=== PATIENT | female | born 1975 | race Caucasian/White ===

== ENCOUNTER 2023-11-23 18:41 | Emergency (ER) | payer OTHER, SELFPAY ==
[2023-11-23 18:45] VITALS: BP 120/79
[2023-11-23 19:06] LABS: % Basophils 0.5 % (0-2); % Eosinophils 2.1 % (0-6); % Immature Granulocytes 2.3 % (0-0.5); % Lymphocytes 23.7 % (20.5-51.1); % Monocytes 8.8 % (1.7-9.3); % Neutrophils 62.6 % (42.2-75.2); Absolute Basophils 0.1 10^3/uL (0-0.2); Absolute Eosinophils 0.2 10^3/uL (0-0.7); Absolute Immature Granulocytes 0.2 10^3/uL (0-0.05); Absolute Lymphocytes 2.5 10^3/uL (1.2-3.4); Absolute Monocytes 0.9 10^3/uL (0.1-0.6); Absolute Neutrophils 6.6 10^3/uL (1.4-6.5); Hematocrit 32.6 % (37.0-47.0); Hemoglobin 11.6 g/dL (12.0-16.0); Mean Corp Hgb Conc. 35.6 g/dL (33.0-37.0); Mean Corpuscular Hgb 33.6 pg (27.0-31.0); Mean Corpuscular Volume 94.5 fL (81.0-99.0); Mean Platelet Volume 11.8 fL (7.4-10.4); Nucleated Red Blood Cells % 0 %; Platelet Count 208 10^3/uL (130-400); Red Blood Cell Count 3.45 10^6/uL (4.20-5.40); Red Cell Dist. Width 13.8 % (11.5-14.5); White Blood Cell Count 10.6 10^3/uL (4.8-10.8)
[2023-11-23 19:13] LABS: Urine Albumin Negative (Neg - Trace); Urine Bilirubin 1+ (Negative); Urine Character Clear (Clear); Urine Color Yellow; Urine Glucose Negative (Negative); Urine Ketone Negative (Negative); Urine Leukocyte Trace (Negative); Urine Nitrite Negative (Negative); Urine Occult Blood Negative (Negative); Urine Urobilinogen 2+ (Neg - 1+)
[2023-11-23 19:22] LABS: COVID-19 Antigen Negative (Negative); Urine Squamous Cell 26-30 /LPF (Few)
[2023-11-23 19:23] LABS: Urine Bacteria Few (Negative); Urine Red Blood Cell 0-2 /HPF (0-2); Urine White Cell 0-2 /HPF (0-5)
[2023-11-23 19:38] LABS: HCG, Serum Qualitative Screen Negative
[2023-11-23 19:56] LABS: Amphetamines Negative (Negative); Barbiturates Negative (Negative); Benzodiazepines Negative (Negative); Buprenorphine Negative (Negative); Cocaine Negative (Negative); Methadone Negative (Negative); Methamphetamines Negative (Negative)
[2023-11-23 19:57] LABS: Marijuana Negative (Negative); Opiates Negative (Negative); Phencyclidine Negative (Negative); Tricyclic Antidepressants Positive (Negative)
--- NOTE | 2023-11-23 22:23 | ED.GENMED ---
History of Present Illness
General
Chief Complaint: Psychiatric Problem
Source: patient and family
Time Seen by Provider: 11/23/23 19:51
Travel History
Have you had any contact with someone who has COVID-19?: No
Do you have any symptoms of coronavirus? Fever > 100 degrees, chills, cough, shortness of breath, sore throat, loss of taste or smell, muscle aches, or headache?: No
History of Present Illness
History of Present Illness:
48-year-old female with past medical history of bipolar disorder, schizoaffective disorder, diagnosed with pneumonia today by primary care physician for evaluation after patient was diagnosed with a left lower lobe pneumonia earlier today, took 1
dose of Augmentin but throughout the day mother states patient has been increasingly delusional, argumentative, pushed the mother and told mother that the mother killed her brother. Family is concerned for possible infection as cause of patient's
psychosis and were concerned that patient does not have a psychiatrist who manages her psychiatric illness so brought patient to the ER for further evaluation. Mother states that patient does not have a psychiatrist who will take her because she is
on Clazuril. Primary care physician prescribes these medications. Patient has no physical complaints at this time outside of feeling jittery all over.
Past History
Past History
ED Past Medical History: Psychiatric
ED Past Surgical History: Urological
Social History
Tobacco: Non-smoker
Alcohol: None
Drug: None
Personal:
Living: with family
Review of Systems
Review of Systems
All Other Systems: ROS reviewed and negative except as documented in HPI and ROS
Phy Exam
Physical Exam
Physical Exam:
GENERAL: Alert , in no apparent distress
EYE: conjunctiva clear
NECK: Supple, no significant adenopathy.
ENT: o/p clr, mmm.
CARDIAC: Regular rate and rhythm
LUNGS: Clear breath sounds bilaterally, no acute respiratory distress, no wheezes/rales/rhonchi
NEUROLOGICAL: Alert and oriented
SKIN: Warm and dry, skin intact.
MUSCULOSKELETAL: well perfused.
PSYCH: Normal and appropriate interaction.
Scores
Heart Failure Risk
Heart Failure Risk Score: Not Applicable
Heart Score for Chest Pain Patients
STEMI patient?: Not applicable
Withdrawal Assessment of Alcohol
Withdrawal Assessment Completed?: Not applicable
Course
Orders/Labs/Results
Orders:
Orders
11/23/23 18:50
Test Result ONCE
11/23/23 18:58
COVID-19 Antigen Urgent
Source: Nasal Swab
Complete Blood Count/With Diff Urgent
HCG, Serum Qualitative Screen Urgent
Urinalysis Reflex To Culture Urgent
Date Specimen was Collected: 11/23/23
Time Specimen was Collected: 18:50
Urine Drug Abuse Screen Urgent
Date Specimen was Collected: 11/23/23
Time Specimen was Collected: 18:50
Urine Microscopic Reflex Cult Urgent
Influenza A+B Rapid Molecular Urgent
ROSA Source: Nasal Swab
Specimen Description:
11/23/23 20:03
Crisis Consult Urgent
Reason for Consult: bipolar/schizoaffective disorder
Abnormal Lab Results
11/23/23
18:58
RBC 3.45 L 10^6/uL
(4.20-5.40)
Hgb 11.6 L g/dL
(12.0-16.0)
Hct 32.6 L %
(37.0-47.0)
MCH 33.6 H pg
(27.0-31.0)
MPV 11.8 H fL
(7.4-10.4)
Abs Immat Gran (auto) 0.2 H 10^3/uL
(0-0.05)
Absolute Neuts (auto) 6.6 H 10^3/uL
(1.4-6.5)
Absolute Monos (auto) 0.9 H 10^3/uL
(0.1-0.6)
Immature Gran % 2.3 H %
(0-0.5)
Urine Bilirubin 1+ A
(Negative)
Urine Urobilinogen 2+ A
(Neg - 1+)
Leukocyte Esterase Rfl Trace A
(Negative)
Urine Bacteria (Reflex) Few A
(Negative)
Ur Tricyclics Screen Positive H
(Negative)
11/23/23 18:58
Vital Signs
Initial and Last Documented VS:
Initial Vital Signs
Temp Pulse Resp BP Pulse Ox
98.0 F 108 16 120/79 98
11/23/23 18:45 11/23/23 18:45 11/23/23 18:45 11/23/23 18:45 11/23/23 18:45
Last Documented Vital Signs
Temp Pulse Resp BP Pulse Ox
98.0 F 108 16 120/79 98
11/23/23 18:45 11/23/23 18:45 11/23/23 18:45 11/23/23 18:45 11/23/23 18:45
MDM/Problems Addressed
Differential Diagnosis Includes:
Exacerbation of patient's bipolar disorder, schizoaffective disorder, I have minimal concern for infection as cause for patient's symptoms today
MDM/Problems Addressed:
48-year-old female present emergency ferment for evaluation after family brought her with concern for possible psychotic breakthrough. Patient is sitting and resting comfortably at this time and in no acute distress. Patient knows that she told
mother today that she suspected the mother of killing her brother and she knows that this is not true. She has taken 1 dose of the Augmentin which I not suspecting is a side effect of this medication. Will check lab work as well as crisis
consultation for further workup here.
Chronic conditions affecting care: Psychiatric illness
Acute Exacerbation and/or Progression of Chronic Illness: Psychiatric illness
*Pulse Oximetry
Patient hypoxic: no
*Critical Care Note
Total Time (30-74mins, 75-104mins- exclusive of procedures): Not Applicable
Patient Management
Escalation/DeEscalation of care consider admission/obs:
Patient was seen by [facility] crisis team and ultimately deemed safe for discharge home. They provided with multiple outpatient resources. Patient is medically cleared and does not need further emergency care. Parents are aware of return precautions
to the emergency department. Patient is otherwise stable for discharge home.
ED Attending Note
-
Portions of this chart may have been created with voice recognition software.� Occasional wrong word or��sound alike� substitutions may have occurred due to the inherent limitations of voice recognition software.
Discharge Plan
Departure
Patient Disposition: Home (Routine Discharge)
Date of Disposition: 11/23/23
Time of Disposition: 23:11
Patient with high blood pressure during this ER visit?: No
Discharge Problem:
Schizoaffective disorder, unspecified condition
Instructions: Bipolar Disorder (DC)
Referrals:
Neto Valdes MD [Family Provider] -
Interventions
Interventions:
*Risk Screen - Suicide Last Done: 11/23/23 20:05
*General Assessment Last Done: 11/23/23 20:05
*Neglect/Abuse Screening Last Done: 11/23/23 20:05
*ED COVID-19 Vaccine History Last Done: 11/23/23 18:45
*Nursing Disposition Last Done: 11/23/23 23:36
ED-Psychological Assessment Last Done: 11/23/23 20:07
Discharge Date and Time
Discharge Date/Time: 11/23/23 23:36
== END 2023-11-23 23:36 | disposition home or self-care (01) ==
LOC: EMR 18:41
PROVIDERS: Emergency Medicine; EMERGENCY PHYSICIAN Emergency Medicine; FAMILY PHYSICIAN Family Medicine
DX: F25.9 Schizoaffective disorder, unspecified (principal); Z11.52 Encounter for screening for COVID-19
CPT/HCPCS: 99283; 80306; 81003; 81015; 84703; 85025; 87502; 87811